=== PATIENT | male | born 1965 ===

== ENCOUNTER 2024-09-02 00:50 | Emergency (ER) | payer SELFPAY ==
[2024-09-02 01:18] VITALS: BP 158/84; PULSE 61; RESP 14; TEMP 36.9; O2SAT 100
--- OUTSIDE RECORDS SUMMARY | 2024-09-09 06:35 | XMS_ITS | Continuity of Care Document ---
Author Organization [facility] Address [address] [place] [address] Phone Care Team Providers Care Executive Team Leader Name Role Phone SHARON RIOS MD Unavailable Unavailable Allergies, Adverse Reactions, Alerts Substance Reaction Status Criticality Penicillins Active No Information Medications Medication Instructions Dosage Effective Dates (start - stop) Status Comments Demerol 50 mg Tab take 1 tablet (50MG) by ORAL route every 4 hours as needed - Active Procedures Procedure Date Rating Non-wc WORK RELATED DISABILITY EXAM THERAPEUTIC EXERCISES THERAPEUTIC EXERCISES THERAPEUTIC EXERCISES THERAPEUTIC EXERCISES THERAPEUTIC EXERCISES THERAPEUTIC EXERCISES THERAPEUTIC EXERCISES THERAPEUTIC EXERCISES THERAPEUTIC EXERCISES THERAPEUTIC EXERCISES THERAPEUTIC EXERCISES THERAPEUTIC EXERCISES THERAPEUTIC EXERCISES THERAPEUTIC EXERCISES THERAPEUTIC EXERCISES THERAPEUTIC EXERCISES THERAPEUTIC EXERCISES THERAPEUTIC EXERCISES THERAPEUTIC EXERCISES THERAPEUTIC EXERCISES THERAPEUTIC EXERCISES POSTOP FOLLOW-UP VISIT THERAPEUTIC EXERCISES THERAPEUTIC EXERCISES THERAPEUTIC EXERCISES MANUAL THERAPY POSTOP FOLLOW-UP VISIT THERAPEUTIC EXERCISES THERAPEUTIC EXERCISES THERAPEUTIC EXERCISES THERAPEUTIC EXERCISES THERAPEUTIC EXERCISES THERAPEUTIC EXERCISES THERAPEUTIC EXERCISES THERAPEUTIC EXERCISES THERAPEUTIC EXERCISES THERAPEUTIC EXERCISES THERAPEUTIC EXERCISES THERAPEUTIC EXERCISES THERAPEUTIC EXERCISES THERAPEUTIC EXERCISES THERAPEUTIC EXERCISES THERAPEUTIC EXERCISES THERAPEUTIC EXERCISES THERAPEUTIC EXERCISES POSTOP FOLLOW-UP VISIT SHOULDER ARTHROSCOPY/SURGERY No Charge OV THERAPEUTIC EXERCISES THERAPEUTIC EXERCISES THERAPEUTIC EXERCISES THERAPEUTIC EXERCISES THERAPEUTIC EXERCISES THERAPEUTIC EXERCISES THERAPEUTIC EXERCISES THERAPEUTIC EXERCISES THERAPEUTIC EXERCISES THERAPEUTIC EXERCISES THERAPEUTIC EXERCISES THERAPEUTIC EXERCISES THERAPEUTIC EXERCISES Jun--2008 THERAPEUTIC EXERCISES Jun--2008 THERAPEUTIC EXERCISES -2008 THERAPEUTIC EXERCISES -2008 THERAPEUTIC EXERCISES -2008 THERAPEUTIC EXERCISES -2008 THERAPEUTIC EXERCISES Jun--2008 THERAPEUTIC EXERCISES Jun--2008 THERAPEUTIC EXERCISES Jun--2008 THERAPEUTIC EXERCISES Jun--2008 THERAPEUTIC EXERCISES Jun--2008 THERAPEUTIC EXERCISES Jun--2008 THERAPEUTIC EXERCISES Jun--2008 THERAPEUTIC EXERCISES Jun--2008 THERAPEUTIC EXERCISES Jun--2008 THERAPEUTIC EXERCISES Jun--2008 THERAPEUTIC EXERCISES Jun--2008 THERAPEUTIC EXERCISES Jun--2008 THERAPEUTIC EXERCISES Jun--2008 THERAPEUTIC EXERCISES Jun--2008 THERAPEUTIC EXERCISES Jun--2008 THERAPEUTIC EXERCISES -2008 THERAPEUTIC EXERCISES Jun--2008 THERAPEUTIC EXERCISES Jun--2008 THERAPEUTIC EXERCISES Jun--2008 THERAPEUTIC EXERCISES Jun--2008 MANUAL THERAPY OFFICE/OUTPATIENT VISIT, EST INJ TENDON SHEATH/LIGAMENT Betamethasone acet&sod phosp THERAPEUTIC EXERCISES THERAPEUTIC EXERCISES MANUAL THERAPY THERAPEUTIC EXERCISES THERAPEUTIC EXERCISES MANUAL THERAPY THERAPEUTIC EXERCISES THERAPEUTIC EXERCISES MANUAL THERAPY THERAPEUTIC EXERCISES THERAPEUTIC EXERCISES MANUAL THERAPY THERAPEUTIC EXERCISES THERAPEUTIC EXERCISES MANUAL THERAPY THERAPEUTIC EXERCISES THERAPEUTIC EXERCISES MANUAL THERAPY THERAPEUTIC EXERCISES THERAPEUTIC EXERCISES MANUAL THERAPY THERAPEUTIC EXERCISES THERAPEUTIC EXERCISES MANUAL THERAPY THERAPEUTIC EXERCISES THERAPEUTIC EXERCISES MANUAL THERAPY THERAPEUTIC EXERCISES THERAPEUTIC EXERCISES MANUAL THERAPY POSTOP FOLLOW-UP VISIT THERAPEUTIC EXERCISES THERAPEUTIC EXERCISES MANUAL THERAPY THERAPEUTIC EXERCISES THERAPEUTIC EXERCISES MANUAL THERAPY THERAPEUTIC EXERCISES MANUAL THERAPY THERAPEUTIC EXERCISES THERAPEUTIC EXERCISES MANUAL THERAPY THERAPEUTIC EXERCISES THERAPEUTIC EXERCISES MANUAL THERAPY ELECTRIC STIMULATION THERAPY THERAPEUTIC EXERCISES MANUAL THERAPY THERAPEUTIC EXERCISES THERAPEUTIC EXERCISES MANUAL THERAPY ELECTRIC STIMULATION THERAPY THERAPEUTIC EXERCISES MANUAL THERAPY ELECTRIC STIMULATION THERAPY THERAPEUTIC EXERCISES MANUAL THERAPY ELECTRIC STIMULATION THERAPY THERAPEUTIC EXERCISES MANUAL THERAPY PT EVALUATION ELECTRIC STIMULATION THERAPY THERAPEUTIC EXERCISES MANUAL THERAPY POSTOP FOLLOW-UP VISIT Advance Directives Directive Yes / No Effective Date File Name No Information Encounters Encounter Description Practice Location Reason(s) For Visit Diagnoses Date Provider Providers Copied on Encounter [facility], [address] [place] [address], [id number], tel:[phone] [facility] No Information 8 BLANCA HERRERA. [address] [place], [place], [id number], . tel:[phone] [facility], [address] [place] [address], [address] [place] [address], [place] tel:[phone] [facility] No Information Sep-0 - 0 BLANCA HERRERA. [address] [place] [address], [address] [place] [address], [place]. tel:[phone] WORK RELATED DISABILITY EXAM [facility], [address] [place] [address], [address] [place] [address], [place] tel:[phone] [facility] left shoulder pain (chief complaint) Rotator cuff (capsule) sprain Oct- 0 BLANCA HERRERA. [address] [place] [address], [address] [place] [address], [place]. tel:[phone] Referring Provider: SHARON Wright, [address] [place] [address], [address]. tel:[phone] [facility], [address] [place] [address], [address] [place] [address], tel:[phone] [facility] No Information 0 [facility]. [address], Suite [facility], [place], [place], [id number]. tel:[phone] Referring Provider: SHARON Wright, [address] [place] [address], [address]. tel:[phone] [facility], [address] [place] [address], [address] [place] [address], tel:[phone] [facility] No Information 0 [facility]. [address], [address], [place], [place], [id number]. tel:[phone] Referring Provider: SHARON Wright, [address] [place] [address], [address]. tel:[phone] [facility], [address] [place] [address], [id number], tel:[phone] [facility] No Information Oct-0 -201 0 [facility]. [address], [address], [place], [place], [id number]. tel:[phone] Referring Provider: SHARON Wright, [address] [place] [address], [address]. tel:[phone] [facility], [address] [place] [address], [address] [place] [address], tel:[phone] [facility] No Information Mar-0 8-201 0 [facility]. [address], [address], [place], [place], [id number]. tel:[phone] Referring Provider: SHARON Wright, [address] [place] [address], [address]. tel:[phone] [facility], [address] [place] [address], [address] [place] [address], tel:[phone] [facility] No Information Mar-0 1-201 0 [facility]. [address], [address], [place], [place], [id number]. tel:[phone] Referring Provider: SHARON Wright, [address] [place] [address], [address]. tel:[phone] [facility], [address] [place] [address], [address] [place] [address], tel:[phone] [facility] No Information Feb-2 5-201 0 [facility]. [address], [address], [place], [place], [id number]. tel:[phone] Referring Provider: SHARON Wright, [address] [place] [address], [address]. tel:[phone] [facility], [address] [place] [address], [id number], tel:[phone] [facility] No Information Feb-2 3-201 0 [facility], [facility]. [address] [place] [address], [id number], . tel:[phone] Referring Provider: SHARON Wright, [address] [place] [address], [address]. tel:[phone] [facility], [address] [place] [address], [id number], tel:[phone] [facility] left shoulder pain (chief complaint) Rotator cuff (capsule) sprainAdhesiv e capsulitis of shoulderOther affections of shoulder region, not elsewhere classifiedUns pecified arthropathy involving shoulder regionOther affections of shoulder region, not elsewhere classified 0 [facility], [facility]. [address] [place] [address], [id number], [place]. tel:[phone] Referring Provider: SHARON Wright, [address] [place] [address], [address]. tel:[phone] [facility], [address] [place] [address], [id number], tel:[phone] [facility] No Information 0 BLANCA HERRERA. [address] [place] [address], [id number], [place]. tel:[phone] Referring Provider: SHARON Wright, [address] [place] [address], [address]. tel:[phone] [facility], [address] [place] [address], [id number], [place] tel:[phone] [facility] No Information 0 [facility]. [address], [address], [place], [place], [id number]. tel:[phone] Referring Provider: SHARON Wright, [address] [place] [address], [address]. tel:[phone] [facility], [address] [place] [address], [id number], [place] tel:[phone] [facility] No Information 0 [facility]. [address], [address], [place], [id number]. tel:[phone] Referring Provider: SHARON Wright, [address] [place] [address], [address]. tel:[phone] [facility], [address] [place] [address], [id number], tel:[phone] [facility] No Information Feb-1 1-201 0 [facility], [facility]. [address] [place] [address], [address] [place] [address], [place]. tel:[phone] Referring Provider: SHARON Wright, [address] [place] [address], [address]. tel:[phone] [facility], [address] [place] [address], [id number], tel:[phone] [facility] No Information Feb-1 0-201 0 [facility]. [address], [place] [address], [place], [place], [id number]. tel:[phone] Referring Provider: SHARON Wright, [address] [place] [address], [address]. tel:[phone] [facility], [address] [place] [address], [id number], tel:[phone] [facility] No Information Feb-0 4-201 0 [facility]. [address], Suite [facility], [place], [place], [id number]. tel:[phone] Referring Provider: SHARON Wright, [address] [place] [address], [address]. tel:[phone] [facility], [address] [place] [address], [id number], tel:[phone] [facility] No Information Feb-0 3-201 0 [facility]. [address], [address], [place], [place], [id number]. tel:[phone] Referring Provider: SHARON Wright, [address] [place] [address], [address]. tel:[phone] [facility], [address] [place] [address], [address] [place] [address], [place] tel:[phone] [facility] left shoulder pain (chief complaint) Rotator cuff (capsule) sprainOther affections of shoulder region, not elsewhere classifiedUns pecified arthropathy involving shoulder region 0 BLANCA HERRERA. [address] [place] [address], [address] [place] [address], [place]. tel:[phone] Referring Provider: SHARON Wright, [address] [place] [address], [address]. tel:[phone] [facility], [address] [place] [address], [address] [place] [address], [place] tel:[phone] [facility] Adhesive capsulitis of shoulder 0 BLANCA HERRERA. [address] [place] [address], [address] [place] [address], [place]. tel:[phone] Referring Provider: SHARON Wright, [address] [place] [address], [address]. tel:[phone] [facility], [address] [place] [address], [address] [place] [address], tel:[phone] [facility] left shoulder pain (chief complaint) No Information 0 BLANCA HERRERA. [address] [place] [address], [address] [place] [address], [place]. tel:[phone] Referring Provider: SHARON Wright, [address] [place] [address], [address]. tel:[phone] [facility], [address] [place] [address], [id number], [place] tel:[phone] [facility] No Information 9 [facility]. [address], [address], [place], [place], [id number]. tel:[phone] Referring Provider: SHARON Wright, [address] [place] [address], [address]. tel:[phone] [facility], [address] [place] [address], [id number], [place] tel:[phone] [facility] No Information Dec-0 9-200 9 [facility], [facility]. [address] [place] [address], [id number], [place]. tel:[phone] Referring Provider: SHARON Wright, [address] [place] [address], [address]. tel:[phone] [facility], [address] [place] [address], [id number], [place] tel:[phone] [facility] No Information Dec-0 7-200 9 [facility]. [address], [address], [id number]. tel:[phone] Referring Provider: SHARON Wright, [address] [place] [address], [address]. tel:[phone] [facility], [address] [place] [address], [id number], [place] tel:[phone] [facility] No Information Dec-0 2-200 9 [facility]. [address], [place] [address], [place], [place], [id number]. tel:[phone] Referring Provider: SHARON Wright, [address] [place] [address], [address]. tel:[phone] [facility], [address] [place] [address], [id number], [place] tel:[phone] [facility] No Information Nov-3 0-200 9 [facility]. [address], [address] [place] [address], [id number]. tel:[phone] Referring Provider: SHARON Wright, [address] [place] [address], [address]. tel:[phone] [facility], [address] [place] [address], [id number], tel:[phone] [facility] No Information Nov2 5-200 9 [facility]. [address], [address], [id number]. tel:[phone] Referring Provider: SHARON Wright, [address] [place] [address], [address]. tel:[phone] [facility], [address] [place] [address], [id number], tel:[phone] [facility] No Information 2 4-200 9 [facility]. [address], [address], [id number]. tel:[phone] Referring Provider: SHARON Wright, [address] [place] [address], [address]. tel:[phone] [facility], [address] [place] [address], [address] [place] [address], tel:[phone] [facility] No Information 2 0-200 9 [facility]. [address], Suite [facility], [place], [place], [id number]. tel:[phone] Referring Provider: SHARON Wright, [address] [place] [address], [address]. tel:[phone] [facility], [address] [place] [address], [id number], tel:[phone] [facility] No Information 1 8-200 9 [facility]. [address], [address] [facility], [place], [place], [id number]. tel:[phone] Referring Provider: SHARON Wright, [address] [place] [address], [address]. tel:[phone] [facility], [address] [place] [address], [id number], tel:[phone] [facility] No Information Nov-1 6-200 9 [facility], [facility]. [address] [place] [address], [id number], [place]. tel:[phone] Referring Provider: SHARON Wright, [address] [place] [address], . tel:[phone] [facility], [address] [place] [address], [id number], [place] tel:[phone] [facility] HEADACHE SYNDROME NEC 9 BECKA ALDANA. [address], [address], [place], [place], [id number], [place]. tel:[phone] [facility], [address] [place] [address], [id number], [place] tel:[phone] [facility] No Information 9 [facility], [facility]. [address] [place] [address], [id number], [place]. tel:[phone] Referring Provider: SHARON Wirght, [address] [place] [address], [address]. tel:[phone] [facility], [address] [place] [address], [id number], [place] tel:[phone] [facility] No Information 9 [facility], [facility]. [address] [place] [address], [id number], [place]. tel:[phone] Referring Provider: SHARON Wright, [address] [place] [address], [address]. tel:[phone] [facility], [address] [place] [address], [id number], [place] tel:[phone] [facility] No Information 0200 9 [facility]. [address], [address], [place], [place], [id number]. tel:[phone] Referring Provider: SHARON Wright, [address] [place] [address], [address]. tel:[phone] [facility], [address] [place] [address], [id number], [place] tel:[phone] [facility] No Information 9 [facility], AT[facility] VIRAJ. [address] [place] [address], [id number], [place]. tel:[phone] Referring Provider: SHARON Wright, [address] [place] [address], [address]. tel:[phone] OFFICE/OUTPA TIENT VISIT, EST [facility], [address] [place] [address], [id number], [place] tel:[phone] [facility] No Information 9 BLANCA HERRERA. [address] [place] [address], [id number], [place]. tel:[phone] Referring Provider: SHARON Wright, [address] [place] [address], [address]. tel:[phone] [facility], [address] [place] [address], [id number], [place] tel:[phone] [facility] No Information 9 [facility]. [address], [address], [place], [id number]. tel:[phone] Referring Provider: SHARON Wright, [address] [place] [address], [address]. tel:[phone] [facility], [address] [place] [address], [id number], [place] tel:[phone] [facility] No Information 9 [facility]. [address], [address], [place], [place], [id number]. tel:[phone] Referring Provider: SHARON Wright, [address] [place] [address], [address]. tel:[phone] [facility], [address] [place] [address], [id number], [place] tel:[phone] [facility] No Information Oct-1 6-200 9 [facility]. [address], Suite [facility], [place], [place], [id number]. tel:[phone] Referring Provider: SHARON Wright, [address] [place] [address], [address]. tel:[phone] [facility], [address] [place] [address], [id number], tel:[phone] [facility] No Information Oct-1 3-200 9 [facility]. [address], [address], [id number]. tel:[phone] Referring Provider: SHARON Wright, [address] [place] [address], [address]. tel:[phone] [facility], [address] [place] [address], [id number], tel:[phone] [facility] No Information Oct-0 9-200 9 [facility]. [address], [place] [address], [place], [id number]. tel:[phone] Referring Provider: SHARON Wright, [address] [place] [address], [address]. tel:[phone] [facility], [address] [place] [address], [id number], tel:[phone] [facility] No Information Oct-0 6-200 9 [facility]. [address], Suite [facility], [place], [place], [id number]. tel:[phone] Referring Provider: SHARON Wright, [address] [place] [address], [address]. tel:[phone] [facility], [address] [place] [address], [id number], tel:[phone] [facility] No Information Oct-0 2-200 9 [facility]. [address], [address], [place], [place], [id number]. tel:[phone] Referring Provider: SHARON Wright, [address] [place] [address], [address]. tel:[phone] [facility], [address] [place] [address], [address] [place] [address], tel:[phone] [facility] No Information Sep-3 0-200 9 [facility], [facility]. [address] [place] [address], [address] [place] [address], [place]. tel:[phone] Referring Provider: SHARON Wright, [address] [place] [address], [address]. tel:[phone] [facility], [address] [place] [address], [address] [place] [address], tel:[phone] [facility] No Information Sep-2 9-200 9 [facility], [facility]. [address] [place] [address], [address] [place] [address], [place]. tel:[phone] Referring Provider: SHARON Wright, [address] [place] [address], [address]. tel:[phone] [facility], [address] [place] [address], [address] [place] [address], tel:[phone] [facility] No Information Sep-2 5-200 9 [facility]. [address], [address], [place], [place], [id number]. tel:[phone] Referring Provider: SHARON Wright, [address] [place] [address], [address]. tel:[phone] [facility], [address] [place] [address], [id number], tel:[phone] [facility] No Information Sep-2 3-200 9 BLANCA HERRERA. [address] [place] [address], [address] [place] [address], . tel:[phone] Referring Provider: SHARON Wright, [address] [place] [address], [address]. tel:[phone] [facility], [address] [place] [address], [id number], tel:[phone] [facility] No Information Sep-2 3-200 9 [facility]. [address], Suite [facility], [place], [place], [id number]. tel:[phone] Referring Provider: SHARON Wright, [address] [place] [address], [address]. tel:[phone] [facility], [address] [place] [address], [id number], tel:[phone] [facility] No Information Sep-2 2-200 9 [facility]. [address], [place] [address], [place], [place], [id number]. tel:[phone] Referring Provider: SHARON Wright, [address] [place] [address], [address]. tel:[phone] [facility], [address] [place] [address], [id number], [place] tel:[phone] [facility] No Information Sep-1 8-200 9 [facility]. [address], [address] [facility], [place], [place], [id number]. tel:[phone] Referring Provider: SHARON Wright, [address] [place] [address], [address]. tel:[phone] [facility], [address] [place] [address], [id number], [place] tel:[phone] [facility] No Information Sep-1 7-200 9 [facility]. [address], [address], [place], [place], [id number]. tel:[phone] Referring Provider: SHARON Wright, [address] [place] [address], [id number]. tel:[phone] [facility], [address] [place] [address], [id number], tel:[phone] [facility] No Information Sep-1 5-200 9 [facility] [address], Suite [facility], [place], [place], [id number]. tel:[phone] Referring Provider: SHARON Wright, [address] [place] [address], [id number]. tel:[phone] [facility], [address] [place] [address], [id number], tel:[phone] [facility] No Information Sep-1 1-200 9 [facility]. [address], [address] [facility], [place], [place], [id number]. tel:[phone] Referring Provider: SHARON Wright, [address] [place] [address], [id number]. tel:[phone] [facility], [address] [place] [address], [address] [place] [address], tel:[phone] [facility] No Information Sep-0 9-200 9 [facility]. [address], [place] [address], [place], [place], [id number]. tel:[phone] Referring Provider: SHARON Wright, [address] [place] [address], [id number]. tel:[phone] [facility], [address] [place] [address], [id number], tel:[phone] [facility] No Information Sep-0 8-200 9 [facility], [facility]. [address] [place] [address], [id number], . tel:[phone] Referring Provider: SHARON Wright, [address] [place] [address], [id number]. tel:[phone] [facility], [address] [place] [address], [id number], tel:[phone] [facility] No Information Sep-0 4-200 9 [facility]. [address], [address], [id number]. tel:[phone] Referring Provider: SHARON Wright, [address] [place] [address], [id number]. tel:[phone] [facility], [address] [place] [address], [address] [place] [address], tel:[phone] [facility] No Information Sep-0 2-200 9 [facility]. [address], [address], [id number]. tel:[phone] Referring Provider: SHARON Wright, [address] [place] [address], [id number]. tel:[phone] [facility], [address] [place] [address], [id number], tel:[phone] [facility] No Information Sep-0 1-200 9 [facility]. [address], [address], [id number]. tel:[phone] Referring Provider: SHARON Wright, [address] [place] [address], [id number]. tel:[phone] [facility], [address] [place] [address], [id number], tel:[phone] [facility] No Information Mar-2 6-200 9 Mary Rossi. [address], [address], [id number], . tel:[phone] Referring Provider: SHARON Wright, [address] [place] [address], [id number]. tel:[phone] Family History Family Member Type Diagnosis Age At Onset No Information Payers Payer name Insurance type Covered constitution party ID Authoriza tion(s) No Information Social History Type Description Quantity Date Captured Comments Sex Male Smoking Status No Information Chief Complaint And Reason For Visit No Information Reason For Referral Reason For Referral No Information History Of Present Illness Encounter Date Complaint History Of Prese nt Illness No Information Functional Status Date Functional Assessmen t No Information Instructions Date Instruction Additional Infor jose daviddawna Activity as tolerated OTC anti-inflammatories (NSAIDs) Activity as tolerated Activity as tolerated Take new medication as prescribe d Assessments Type Assessment Date No Information Patient Care Teams Name Effective Dates (start - stop) Status Members No Information
== END 2024-09-02 07:42 | disposition left against medical advice (07) ==
DX: G43.909 Migraine, unspecified, not intractable, without status migrainosus (principal)
CPT/HCPCS: 99199